=== PATIENT | female | born 1950 | race Caucasian/White ===

== ENCOUNTER 2019-12-31 16:02 | Outpatient (REF) | payer BC, SELFPAY | END 2019-12-31 16:03 | disposition home or self-care (01) | LOC: HO.LAB 16:02 | PROVIDERS: Visit Provider Hospitalist | DX: Z20.828 Contact with and (suspected) exposure to other viral communicable diseases (principal) | CPT/HCPCS: 87635 ==

== ENCOUNTER 2024-12-25 11:34 | Day surgery (SDC) | payer BC, SELFPAY ==
--- OUTSIDE RECORDS SUMMARY | 2024-11-12 12:06 | XMS_ITS | Patient Health Record ---
Author Organization [facility] Address [address] [place] [id number] Care Team Providers Care Button Sewer Name Role Phone Mathew Gabriel MD Primary Care Provider Unavail able NielsenShiraz Unavailable [phone] Allergies No Known Allergies Reason For Referral No Information Medications Medication SIG (Take, Route, Fr equency, Duration) Notes Start Date End Date Status Multi Vitamin - 1 tablet Orally Once a day Active Calcium 500 MG 1 tablet with meals Orally Twice a day Active Immunizations Vaccine Route Administration Date Status Comme nts Influenza Unknown 11/26/2023 Administered Problems Problem Type SNOMED Code ICD Code Onset Dates Problem Status W/U Status Risk Notes Problem Pre-surgery evaluation (863870528) Other specified pre-operative examination (V72.83) Active confirmed Problem Colon cancer screening (559792192) Colon cancer screening (V76.51) Active confirmed Problem Colon cancer screening (383541069) Colon cancer screening (Z12.11) Active confirmed Problem Preprocedural examination (290291442135926) Preprocedural examination (Z01.818) Active confirmed Problem 70021117 Diarrhea of presumed infectious origin (R19.7) Active confirmed Vital Signs Temperature 96.9 degrees Fahrenheit 09/23/2024 Blood pressure diastolic 01 mm Hg 09/23/2024 Height 66.5 in 09/23/2024 Blood pressure systolic 001 mm Hg 09/23/2024 Weight 121.8 lbs 09/23/2024 BMI 19.36 kg/m2 09/23/2024 Procedures Procedure Date Ordered Date Performed Result Body Sit e COLONOSCOPY 09/23/2024 N/A Encounters Encounter Location Date Provider Diagnosis [facility] [address] [place] [address] 09/23/2024 Shiraz Nielsen Colon cancer screeni ng Z12.11 and Preprocedural examination Z01.[address] [facility] [address] [place] [address] 09/25/2024 Shiraz Nielsen Assessments Encounter Date Diagnosis (ICD Code) Assessment Notes Treatment Notes Treatment Clinical Notes Section Notes 09/23/2024 Colon cancer screening (ICD-10 - Z12.11) Overall, Norma appears quite well. Given her age, excellent clinical appearance, and her last colonoscopy being over 10 years ago, I did recommend a colonoscopy for screening purposes. We did review the rationale for this in regard to colon cancer prevention. Full consent has been obtained for this, including risks of bleeding and perforation. The procedure will be done with monitored anesthesia care. Norma was very comfortable with this plan. Thank you again for allowing me to participate in Norma's care. I shall continue to keep you advised of her progress. 09/23/2024 Preprocedural examination (ICD-10 - Z01.818) Overall, Norma appears quite well. Given her age, excellent clinical appearance, and her last colonoscopy being over 10 years ago, I did recommend a colonoscopy for screening purposes. We did review the rationale for this in regard to colon cancer prevention. Full consent has been obtained for this, including risks of bleeding and perforation. The procedure will be done with monitored anesthesia care. Norma was very comfortable with this plan. Thank you again for allowing me to participate in Norma's care. I shall continue to keep you advised of her progress. Plan Of Treatment Pending Test Test Name Order Date COLONOSCOPY 09/23/2024 LIVER PROFILE 04/12/2023 CRP 04/12/2023 CBC w DIFF 04/12/2023 SED RATE (ESR) 04/12/2023 CELIAC PANEL #10 04/12/2023 C DIFFICILE RFLX PCR 04/12/2023 Calprotectin, Fecal 04/12/2023 GI PANEL 04/12/2023 Future Test Test Name Order Date COLONOSCOPY 05/13/2014 Next Appt Details Provider Name:Shiraz Nielsen , 12/25/2024 02:20:00 PM, [address] [place] [address] , [place], [place], [phone], Insurance Providers Payer Name Payer Address Payer Phone Subscriber Number Group Number Insured Name Patient Relationship to Insured Coverage Start Date Coverage End Date [facility] [address] [place], [place] [id number] [phone] [id number] NORMA DUKES Self - patient is the insured 4 Medical (General) History Medical History History ICD Code Negative screening colonosco py 08-20-2003, other than very mild sigmoid diverticulosis and small internal hemorrhoids Denies MS,DM,CVA,Lung disease,renal dise ase 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
[2024-12-23 14:24] VITALS: BMI 19.2
--- NOTE | 2024-12-24 08:03 | HO.ANESPROP2 ---
Documented by User: Nissa Salgado NP 12/24/24 08:04 HPI - Anesthesia Eval Consult details Narrative: 74yo F for Colonoscopy [facility] Active Problems Active Problems: All Active Problems Encounter for screening laboratory testing for COVID-19 virus in asymptomatic patient (Acute) Past Medical History Medical History (Updated 12/23/24 @ 14:25 by Starla Webster RN) Hives Surgical History Surgical History (Updated 12/23/24 @ 14:20 by Starla Webster RN) H/O colonoscopy History of back surgery (~1996) Social History Social History Patient Tobacco Use Status: Never used Tobacco Are you DNR?: No Advance Directives: No Advance Directives Information Provided: Yes Meds Allergies Allergy/AdvReac Type Severity Reaction Status Date / Time No Known Allergies Allergy Verified 12/31/19 15:59 Home Medications ?Medication ?Instructions ?Recorded ?Confirmed ?Last Taken ?Type calcium carbonate 500 mg PO BID 12/23/24 12/25/24 Unknown History multivitamin 1 tab PO DAILY 12/23/24 12/25/24 Unknown History Exam Height,Weight and Vital Signs: Height 5 ft 6.5 in Weight 54.885 kg Assessment and Plan Assessment Anesthesia Assessment: Chart Reviewed Documented by User: Mitzy Gallegos MD 12/25/24 14:02 [facility] Past Medical History Medical History (Updated 12/23/24 @ 14:25 by Starla Webster RN) Hives Family History Family history of problems with anesthesia: No Surgical History Surgical History (Updated 12/23/24 @ 14:20 by Starla Webster RN) H/O colonoscopy History of back surgery (~1996) History of Problems with Anesthesia: No Social History Social History Patient Tobacco Use Status: Never used Tobacco Are you DNR?: No Advance Directives: No Advance Directives Information Provided: Yes Meds Allergies Allergy/AdvReac Type Severity Reaction Status Date / Time No Known Allergies Allergy Verified 12/31/19 15:59 Home Medications ?Medication ?Instructions ?Recorded ?Confirmed ?Last Taken ?Type calcium carbonate 500 mg PO BID 12/23/24 12/25/24 Unknown History multivitamin 1 tab PO DAILY 12/23/24 12/25/24 Unknown History Exam Airway Mallampati Class: II TM Dist: >3cm Neck ROM: Full Heart: rrr Lungs: cta Assessment and Plan Assessment Anesthesia Assessment: Anesthesia Plan Discussed Final Anesthetic Review Family History of Problems with Anesthesia: No History of Problems with Anesthesia: No NPO: Yes ASA Class: II Final Preanesthetic Review: No Changes in Pt Med Stat, Meds/Allgs Chart Reviewed and Consent Obtained/Reviewed Patient Risk: Low Procedure Risk: Low Anesthetic Plan Anesthetic Plan: MAC: Disposition: Standard PACU
[2024-12-25 12:25] VITALS: BMI 18.6
[2024-12-25 12:37] VITALS: BP 126/72; PULSE 71; RESP 16; TEMP 37.3; O2SAT 98
[2024-12-25] MEDS: Lactated Ringers 1,000 ML 100 ML IVCONT (13:04)
[2024-12-25 16:22] VITALS: BP 111/53; PULSE 65; RESP 16; TEMP 36.6; O2SAT 97
--- NOTE | 2024-12-25 16:28 | PM.OP ---
Brief Operative Note Date of Service: 12/25/24 Pre-op diagnosis: Screening Post-op diagnosis: other (Diverticulosis) Procedure: Colonoscopy to the cecum and TI Surgeon: Shiraz Nielsen MD Anesthesia: MAC Was an Tractor Trailer Operator used for this Procedure?: No Estimated blood loss (mL): 0 Pathology: none sent Condition: stable Disposition: PACU
[2024-12-25 16:37] VITALS: BP 144/51; PULSE 68; RESP 16; TEMP 36.6; O2SAT 100
--- NOTE | 2024-12-25 19:16 | P.BOP_ITS ---
Brief Operative Note Date of Service: 12/25/24 Pre-op diagnosis: Screening Post-op diagnosis: other (Diverticulosis. AVM's) Procedure: Colonoscopy to the cecum and TI Surgeon: Shiraz Nielsen MD Anesthesia: MAC Was an Certified Personal Finance Counselor used for this Procedure?: No Estimated blood loss (mL): 0 Pathology: none sent Condition: stable Disposition: PACU
--- NOTE | 2024-12-28 08:33 | OP_ITS ---
DATE OF SERVICE: 12/25/2024 SURGEON: Shiraz Nielsen MD INDICATIONS: The patient presents for evaluation of colorectal cancer screening. Full consent has been obtained from her for this, including risks of bleeding and perforation. PREOPERATIVE DIAGNOSIS: Colorectal cancer screening. POSTOPERATIVE DIAGNOSIS: PROCEDURE PERFORMED: Colonoscopy to the cecum and terminal ileum. ESTIMATED BLOOD LOSS: COMPLICATIONS: ANESTHESIA: Medication used, monitored anesthesia care. ASSISTANTS: SPECIMENS: POSTOPERATIVE DIAGNOSES: Colorectal cancer screening, nonbleeding angiodysplasias of cecum and ascending colon, diverticulosis, and internal hemorrhoids. DESCRIPTION OF PROCEDURE: The patient was placed in the left lateral decubitus position. The digital rectal exam revealed no abnormalities. The Olympus video pediatric colonoscope was entered into the rectum and advanced easily to the cecum. Once in the cecum, I did identify a normal-appearing cecal pouch with appendiceal orifice and a normal-appearing ileocecal valve. The terminal ileum was cannulated and appeared normal. Scope was withdrawn back in the colon. The entire cecum and ileocecal valve appeared normal. The scope was slowly withdrawn assessing all mucosal surfaces carefully. Preparation was excellent. I did not visualize any sign of polyps or colitis. In the cecum and ascending colon were small, less than 10 mm, nonbleeding angiodysplasias. In the rectum, the scope was retroflexed visualizing internal hemorrhoids, but no other pathology. The rectal mucosa appeared normal. Scope was straightened and withdrawn from the patient. She tolerated the procedure well and was returned to the recovery area in stable condition. IMPRESSION: 1. Diverticulosis. 2. Nonbleeding angiodysplasias. 3. Internal hemorrhoids. PLAN: Given today's negative colonoscopy, I do not think she would need any further screening colonoscopies at this point since she has had 2 previous negative exams as well. She will see me on a p.r.n. basis. This has been discussed with her . MD SILVIO Torrez/FELECIA / [id number]
== END 2024-12-25 16:53 | disposition home or self-care (01) ==
PROVIDERS: PCP Pediatrics; Visit Provider Internal Medicine
PROC: 0DJD8ZZ Inspection of Lower Intestinal Tract, Via Natural or Artificial Opening Endoscopic (ICD-10-PCS; CPT 45378; principal; 2024-12-25 13:20)
DX: Z12.11 Encounter for screening for malignant neoplasm of colon (principal); K55.20 Angiodysplasia of colon without hemorrhage; K57.30 Diverticulosis of large intestine without perforation or abscess without bleeding; K64.8 Other hemorrhoids
CPT/HCPCS: 45378; J2003; J2704